=== PATIENT | female | born 1965 | race African-American/Black ===

== ENCOUNTER 2019-05-01 11:17 | Emergency (ER) | payer SELFPAY ==
[2019-05-01] MEDS ORDERED: Aspirin Chewable 81 MG TAB ONE (12:11)
[2019-05-01] MEDS ORDERED: Acetaminophen 500 MG TAB ONE (12:11)
[2019-05-01 12:54] LABS: Hemoglobin 13.5 g/dL (12.0-16.0); Mean Corpuscular HGB CONC 30.2 g/dL (32.0-36.0); Mean Corpuscular Hemoglobin 26.1 pg (27.0-31.0); Mean Corpuscular Volume 86.5 fL (78.0-98.0); Mean Platelet Volume 6.9 fL (7.4-10.4); Platelet Count 224 thou/uL (130-400); RBC Distribution Width 13.9 % (11.5-14.5); Red Blood Cell (RBC) Count 5.16 mill/uL (4.20-5.40); White Blood Cell (WBC) Count 6.8 thou/uL (4.8-10.8)
[2019-05-01 13:06] LABS: Eosinophils 3 % (0-10); Lymphocytes 61 % (21-51); MDiff Complete? YES; Monocytes 9 % (0-10); Neutrophil 27 % (42-75); Platelet Morphology Comment Appears Adequate
[2019-05-01 13:11] LABS: ALT (SGPT) 23 U/L (8-55); AST (SGOT) 24 U/L (5-34); Albumin 4.2 g/dL (3.5-5.0); Alkaline Phosphatase 82 U/L (40-110); Anion Gap 16 mmol/L (10-20); BUN (Urea Nitrogen) 11 mg/dL (9.8-20.1); Bilirubin, Total 0.3 mg/dL (0.2-1.2); Calc. Creatinine Clearance 0 mL/min (70-130); Calcium 9.3 mg/dL (7.8-10.44); Carbon Dioxide 23 mmol/L (22-29); Chloride 103 mmol/L (98-107); Estimated GFR-MDRD 68; Globulin 3.3 g/dL (2.4-3.5); Glucose 80 mg/dL (70-105); Potassium 3.8 mmol/L (3.5-5.1); Protein, Total 7.5 g/dL (6.0-8.3); Sodium 138 mmol/L (136-145)
[2019-05-01 13:13] LABS: Bilirubin Negative (Negative); Blood, Urine Trace (Negative); Clarity Clear (Clear); Glucose, Urine (Dipstick) Negative (Negative); Leukocyte Trace (Negative); Nitrite Negative (Negative); Protein, Urine (Dipstick) Negative (Neg-Trace); Urobilinogen 0.2 mg/dL (Less than 2)
[2019-05-01 13:23] LABS: Bacteria/HPF Rare-Few HPF (None Seen); RBC/HPF 0-3 HPF (0-3); WBC/HPF 0-3 HPF (0-3)
--- NOTE | 2019-05-01 13:30 | RAD ---
LEFT SHOULDER 3 VIEWS: Date: 05/01/19 HISTORY: Left shoulder pain. FINDINGS/IMPRESSION: There are degenerative changes in the acromioclavicular joint. No acute fracture, dislocation, or bon y destruction is seen. POS: [facility]
--- NOTE | 2019-05-01 13:38 | RAD ---
PA AND LATERAL VIEWS OF THE CHEST: HISTORY: Chest pain. FINDINGS The heart size is normal. The lungs are expanded without focal areas of consolidation, pneumothorace s, or pleural effusions. No acute osseous abnormalities are seen. IMPRESSION: No acute process. POS: [facility]
== END 2019-05-01 13:52 | disposition home or self-care (01) ==
LOC: NAV ERS 11:17
DX: S46.912A Strain of unspecified muscle, fascia and tendon at shoulder and upper arm level, left arm, initial encounter (principal); M19.012 Primary osteoarthritis, left shoulder; R07.9 Chest pain, unspecified; R51 Headache; D72.820 Lymphocytosis (symptomatic); X58.XXXA Exposure to other specified factors, initial encounter
CPT/HCPCS: 36415; 71046; 80053; 81003; 81015; 84484; 85025; 93005

== ENCOUNTER 2019-05-04 09:11 | Emergency (ER) | payer SELFPAY | END 2019-05-04 09:41 | disposition home or self-care (01) | LOC: NAV ERS 09:11 | DX: M25.561 Pain in right knee (principal); M25.562 Pain in left knee; Z79.899 Other long term (current) drug therapy | CPT/HCPCS: 99281 ==